=== PATIENT | male | born 1990 | race Caucasian/White ===

== ENCOUNTER 2022-02-03 16:03 | Emergency (ER) | payer OTHER ==
[~2022-02-03] VITALS: Ht 180.3 cm; Wt 100.0 kg
[2022-02-03 16:09] VITALS: TEMP 98.7
[2022-02-03 16:43] LABS: COLLECTION METHOD CLEAN CATCH
[2022-02-03 16:46] LABS: BASO # 0.1 K/mm3 (0.0-0.2); BASO % 1.1 % (0.0-2.0); EOS # 0.1 K/mm3 (0.0-0.7); EOS % 1.1 % (0.0-4.0); GRAN # 4.1 K/mm3 (1.4-6.5); GRAN % 61.1 % (42.2-75.2); LYMPH # 1.9 K/mm3 (1.2-3.4); LYMPH % 28.4 % (20.0-51.0); MEAN CELL VOLUME 97 fl (80.0-100.0); MEAN CORPUSCULAR HEMOGLOBIN 33 pg (27-31); MEAN CORPUSCULAR HGB CONC 34 g/dl (33.0-37.0); MEAN PLATELET VOLUME 10.3 fl (7.4-10.4); MONO # 0.5 K/mm3 (0.1-0.6); MONO % 8.1 % (1.7-9.3); PLATELET COUNT 210 K/mm3 (130-400); RED BLOOD COUNT 4.25 M/mm3 (4.20-5.60); REDCELL DISTRIBUTION WIDTH-CV 12.4 % (11.5-14.5)
[2022-02-03 16:51] LABS: MUCOUS Present (NOT PRESENT); SQUAMOUS EPITHELIAL 0-2 /hpf (0-10); URINE APPEARANCE Clear (CLEAR/HAZY); URINE BACTERIA None Seen /hpf (NONE SEEN); URINE COLOR Yellow (YELLOW); URINE RBC 20-50 /hpf (0-2)
[2022-02-03 16:52] LABS: PH 5.5 (5.0-8.5); URINE BLOOD 2+ (NEGATIVE); URINE GLUCOSE Negative (NEGATIVE); URINE KETONE Negative (NEGATIVE); URINE NITRATE Negative (NEGATIVE); URINE PROTEIN(semi-quant) 1+ (NEGATIVE); URINE UROBILINOGEN 0.2 E.U/dL (0.2-1.0)
[2022-02-03 17:05] LABS: CREATININE, serum 1.02 mg/dL (0.72-1.25); POTASSIUM 3.6 mmol/L (3.5-4.5)
[2022-02-03 17:06] LABS: ALBUMIN 4.5 gm/dL (3.5-5.0); BILIRUBIN,TOTAL 0.3 mg/dL (0.2-1.2); CALCIUM 9.5 mg/dL (8.4-10.2); TOTAL PROTEIN 7.5 gm/dL (6.2-8.1)
[2022-02-03 18:25] VITALS: BP 129/86; PULSE 87
[2022-02-03] MEDS ORDERED: PERCOCET 325 MG1 TA2 PO (18:29)
[2022-02-03] MEDS ORDERED: FLOMAX 0.40.4 MG/CAP PO (18:31)
== END 2022-02-03 18:47 | disposition home or self-care (01) ==
LOC: COL.ER 16:03
PROVIDERS: Physician Assistant
DX: N13.2 Hydronephrosis with renal and ureteral calculous obstruction (principal); Z87.891 Personal history of nicotine dependence; Z28.310 Unvaccinated for COVID-19
CPT/HCPCS: Q9967

== ENCOUNTER → 2022-06-23 | Day surgery (SDC) | payer OTHER ==
[~2022-06-23] VITALS: Ht 177.8 cm; Wt 103.6 kg
[~2022-06-23] MED LIST: FLOMAX 0.40.4 MG/CAP PO; NORCO 325 MG-51 TAB PO; PERCOCET 325 MG1 TA2 PO; PYRIDIUM 100MG100 MG PO
[2022-06-23 08:21] VITALS: BP 122/70; PULSE 72; TEMP 98.1
[2022-06-23 12:16] VITALS: BP 141/91; PULSE 88; TEMP 98.6
--- NOTE | 2022-06-23 12:55 | NUR ---
1150 RETURNS TO ROOM 1 PER CART. AWAKE, ALERT. RESP CLEAR, UNLABORED. HOV ELEVATED 60 DEGREES. VITAL SIGNS OBTAINED. DENIES PAIN OR URINARY URGENCY. CALL LIGHT AT SIDE. IN ROOM. 1200 AMBULATES TO BATHROOM WITH STANDBY ASSIST. VOIDS WITHOUT DIFFICULTY. 1215 TOLERATES PO WATER AND MUFFIN WITHOUT NAUSEA. 1230 AWAKE, ALERT. CONVERSES WITH . 1240 DISCHARGE INSTRUCTIONS REVIEWED. PATIENT AND VERBALIZE UNDERSTANDING. COPY PROVIDED IN DISCHARGE FOLDER. 1245 SITS ON EDGE OF BED. DRESSES SELF. THEN AMBULATES TO BATHROOM. AGAIN, VOIDS WITHOUT DIFFICULTY.
== END ==
LOC: SDCO 07:38
DX: N20.0 Calculus of kidney (principal); N28.89 Other specified disorders of kidney and ureter; Z87.891 Personal history of nicotine dependence
CPT/HCPCS: C1769; C2617; J0690; J1885; J2405; J2704; J3010; J7120; Q9967

== ENCOUNTER 2023-06-27 08:50 | Day surgery (SDC) | payer OTHER ==
[~2023-06-27 08:50] MED LIST changes: +LR 1,000 ML IV SCH
[2023-06-27] MEDS ORDERED: fentaNYL 50 MCG/ML 2 ML VIAL ONE (09:24)
[2023-06-27] MEDS ORDERED: Lidocaine PF 2% (20 MG/ML) 5 ML VIAL ONE (09:25)
[2023-06-27] MEDS ORDERED: NS 10 ML IV ONE (09:25)
[2023-06-27] MEDS ORDERED: dexAMETHasone 10 MG/ML VIAL ONE (09:25)
[2023-06-27] MEDS ORDERED: Glycopyrrolate 0.2 MG/ML 1 ML VIAL ONE (09:25)
[2023-06-27] MEDS ORDERED: Ondansetron 4 MG/2 ML VIAL ONE (09:25)
[2023-06-27] MEDS ORDERED: Lidocaine 2% (20 MG/ML) 20 ML UROJET UR ONE (09:50)
--- NOTE | 2023-06-27 09:59 | NUR ---
0805 Received report from RYAN Carl[place], [facility]. Pt enroute via POV. Arrived 06/26/23 at 1725 c/o RLQ and right side flank pain. CT showing 8mm x 5mm obstructing stone. Received 1 L NS and 1 L LR. lisinopril 20 mg PO @ 0049 Toradol 15 mg IV @ 1742 06/26/23 and 0048 06/27 Fentanyl x 2 Morphine 4 mg IV @ 0300 and 0715 20 waqar IV placed in right AC D/C VS 158/101, 78HR, 18RR, 97%
[2023-06-27] MEDS ORDERED: HYDROmorphone 2 MG/1 ML VIAL IV PRN (10:15)
[2023-06-27] MEDS ORDERED: hydrALAZINE 20 MG/ML 1 ML VIAL IV PRN (10:15)
[2023-06-27] MEDS ORDERED: droPERidol 2.5 MG/ML 2 ML VIAL IV PRN (10:15)
[2023-06-27] MEDS ORDERED: Promethazine 25 MG/ML 1 ML VIAL IV PRN (10:15)
[2023-06-27] MEDS ORDERED: Ondansetron 4 MG/2 ML VIAL IV PRN (10:15)
[2023-06-27] MEDS ORDERED: fentaNYL 50 MCG/ML 2 ML VIAL IV PRN (10:15)
[2023-06-27] MEDS ORDERED: ePHEDrine 50 MG/ML VIAL ONE (10:28)
[2023-06-27] MEDS ORDERED: PERCOCET 325 MG1 TA2 PO (11:00)
[2023-06-27] MEDS ORDERED: FLOMAX 0.40.4 MG/CAP PO (11:00)
[2023-06-27] MEDS ORDERED: oxyCODONE/Acetaminophen 5-325 MG TAB PO PRN (11:15)
[2023-06-27] MEDS ORDERED: Hyoscyamine 0.125 MG Sublingual TAB SL PRN (11:15)
[2023-06-27] MEDS ORDERED: Ketorolac 15 MG/ML VIAL IV PRN (11:15)
[2023-06-27 11:35] VITALS: BP 121/97; PULSE 85; TEMP 97.8
[2023-06-27 11:45] VITALS: BP 111/65; PULSE 83
[2023-06-27 12:00] VITALS: BP 117/63; PULSE 74
--- NOTE | 2023-06-27 12:38 | NUR ---
1215 - PATIENT IS TOLERATING PO WELL, AMBULATES INDEPENDENTLY TO BATHROOM WITH STEADY GAIT, IS ABLE TO URINATE AND CONTINUES TO BE CLEAR BLOOD TINGED URINE. DISCHARGE INSTRUCTIONS GONE OVER WITH FAMILY AND PATIENT IN THE ROOM. THEY VERBALIZED UNDERSTANDING OF DISCHARGE INSTRUCTIONS AND HOME MEDICATIONS. GIVEN INSRUCTION TO CALL WITH ANY QUESTIONS OR CONCERN. PATIENT IV TAKEN OUT OF [facility]AC WITH CATHETER INTACT. PATIENT IS GETTING DRESSED AT THIS TIME. 1230 - PATIENT IS DISCHARGED TO HOME BOUND VEHICLE ACCOMPANIED BY STAFF BY WHEELCHAIR. IS DRIVING THE PATIENT. PERSONAL BELONGINGS AND DISCHARGE PAPERWORK WITH PATIENT AT THIS TIME.
--- NOTE | 2023-06-27 14:13 | NUR ---
0908 PT AMBULATORY TO BAY 5 WITH A STEADY GAIT, BREATHING EVEN AND UNLABORED. PT IS ALERT AND ORIENTED. CONSENTS REVIEWED AND SIGNED BY PT. IV ESTABLISHED. LR INFUSING VIA GRAVITY AT KVO. CALL LIGHT IN REACH. WARM BLANKET PROVIDED.
== END 2023-06-27 12:30 | disposition home or self-care (01) ==
LOC: SDCO 08:50
DX: N20.2 Calculus of kidney with calculus of ureter (principal)
CPT/HCPCS: C1769; C2617; J0690; J1100; J2405; J2704; J3010

== ENCOUNTER → 2023-08-09 | Outpatient (CLI) | payer OTHER ==
[~2023-08-09] MED LIST changes: -LR 1,000 ML IV SCH
== END ==
LOC: COL.RAD 15:12
DX: N20.2 Calculus of kidney with calculus of ureter (principal)

== ENCOUNTER 2023-09-10 09:06 | Emergency (ER) | payer OTHER ==
[~2023-09-10] VITALS: Ht 177.8 cm; Wt 109.1 kg
[2023-09-10 09:14] VITALS: BP 167/98; TEMP 97.7
[2023-09-10 09:46] LABS: COLLECTION METHOD CLEAN CATCH
[2023-09-10 09:54] LABS: PH 5.5 (5.0-8.5); URINE APPEARANCE CLEAR (CLEAR/HAZY); URINE BLOOD 2+ (NEGATIVE); URINE COLOR YELLOW (YELLOW); URINE GLUCOSE NEGATIVE (NEGATIVE); URINE KETONE NEGATIVE (NEGATIVE); URINE NITRATE NEGATIVE (NEGATIVE); URINE PROTEIN(semi-quant) TRACE (NEGATIVE); URINE UROBILINOGEN 0.2 E.U/dL (0.2-1.0)
[2023-09-10] MEDS ORDERED: Iohexol 300 - 100 ML VIAL IV ONE (10:04)
[2023-09-10 10:05] LABS: MUCOUS PRESENT (NOT PRESENT); URINE BACTERIA RARE /hpf (NONE SEEN)
[2023-09-10] MEDS ORDERED: NS 100 ML IV SCH (10:11)
[2023-09-10 11:33] VITALS: PULSE 70
== END 2023-09-10 11:33 | disposition home or self-care (01) ==
LOC: COL.ER 09:06
PROVIDERS: Family Medicine
DX: N13.2 Hydronephrosis with renal and ureteral calculous obstruction (principal)
CPT/HCPCS: Q9967

== ENCOUNTER 2024-01-17 12:04 | Emergency (ER) | payer OTHER ==
[~2024-01-17] VITALS: Ht 177.8 cm; Wt 100.0 kg
[~2024-01-17 12:04] MED LIST changes: +MOBIC15 MG PO; +ROXICODONE 55 MG/TAB PO; +ZOFRAN ODT4 MG PO
[2024-01-17 12:12] VITALS: TEMP 97.8
[2024-01-17] MEDS ORDERED: LR 1,000 ML IV ONE (12:30)
[2024-01-17] MEDS ORDERED: Ondansetron 4 MG/2 ML VIAL IV ONE (12:30)
[2024-01-17] MEDS ORDERED: Ketorolac 15 MG/ML VIAL IV ONE (12:45)
[2024-01-17] MEDS ORDERED: Morphine 4 MG/ML VIAL IV ONE (12:45)
[2024-01-17 12:51] LABS: COLLECTION METHOD CLEAN CATCH
[2024-01-17 12:58] LABS: BASO # 0.1 K/mm3 (0.0-0.2); BASO % 0.4 % (0.0-2.0); EOS % 0.1 % (0.0-4.0); GRAN # 10.1 K/mm3 (1.4-6.5); GRAN % 80.3 % (42.2-75.2); HEMATOCRIT 40.1 % (42.0-52.0); HEMOGLOBIN 13.8 g/dl (13.5-18.0); LYMPH # 1.5 K/mm3 (1.2-3.4); LYMPH % 11.7 % (20.0-51.0); MEAN CELL VOLUME 94 fl (80.0-100.0); MEAN CORPUSCULAR HEMOGLOBIN 33 pg (27-31); MEAN CORPUSCULAR HGB CONC 34 g/dl (33.0-37.0); MEAN PLATELET VOLUME 10.1 fl (7.4-10.4); MONO # 0.9 K/mm3 (0.1-0.6); MONO % 7.1 % (1.7-9.3); PLATELET COUNT 209 K/mm3 (130-400); RED BLOOD COUNT 4.25 M/mm3 (4.20-5.60); REDCELL DISTRIBUTION WIDTH-CV 11.8 % (11.5-14.5)
[2024-01-17 13:00] LABS: URINE APPEARANCE CLEAR (CLEAR/HAZY); URINE BLOOD NEGATIVE (NEGATIVE); URINE COLOR YELLOW (YELLOW); URINE GLUCOSE NEGATIVE (NEGATIVE); URINE KETONE NEGATIVE (NEGATIVE); URINE NITRATE NEGATIVE (NEGATIVE); URINE PROTEIN(semi-quant) NEGATIVE (NEGATIVE); URINE UROBILINOGEN 0.2 E.U/dL (0.2-1.0)
[2024-01-17 13:15] LABS: ALBUMIN 4.3 g/dL (3.5-5.0); BILIRUBIN,TOTAL 0.6 mg/dL (0.2-1.2); C-REACTIVE PROTEIN 0.81 mg/dL (0.00-0.50); CREATININE, serum 1.09 mg/dL (0.72-1.25); POTASSIUM 3.5 mEq/L (3.5-4.5); TOTAL PROTEIN 7.1 g/dl (6.2-8.1)
[2024-01-17] MEDS ORDERED: Iohexol 300 - 100 ML VIAL IV ONE (13:32)
[2024-01-17] MEDS ORDERED: NS 100 ML IV SCH (13:33)
[2024-01-17] MEDS ORDERED: PERCOCET 325 MG1 TA2 PO (14:23)
[2024-01-17 14:38] VITALS: BP 146/94; PULSE 80
== END 2024-01-17 14:38 | disposition home or self-care (01) ==
LOC: COL.ER 12:04
PROVIDERS: Family Medicine
DX: N20.1 Calculus of ureter (principal); Z87.442 Personal history of urinary calculi
CPT/HCPCS: J1885; J2270; J2405; J7120; Q9967

== ENCOUNTER 2024-03-16 07:09 | Observation (INO) | payer OTHER ==
[2024-03-16] VITALS (7 sets, daily range): BP systolic 131–150; BP diastolic 74–92; PULSE 69–97; TEMP 97.9–98.5
[~2024-03-16] VITALS: Ht 177.8 cm; Wt 102.7 kg
[2024-03-16] MEDS ORDERED: Ondansetron 4 MG/2 ML VIAL IV ONE (07:30)
[2024-03-16] MEDS ORDERED: NS 1,000 ML IV ONE (07:30)
[2024-03-16] MEDS ORDERED: Ketorolac 30 MG/ML VIAL IV ONE (07:30)
[2024-03-16 07:52] LABS: BASO # 0.1 K/mm3 (0.0-0.2); BASO % 0.9 % (0.0-2.0); EOS # 0.1 K/mm3 (0.0-0.7); EOS % 1.3 % (0.0-4.0); GRAN # 4.6 K/mm3 (1.4-6.5); GRAN % 66.6 % (42.2-75.2); HEMATOCRIT 43.3 % (42.0-52.0); HEMOGLOBIN 14.7 g/dl (13.5-18.0); LYMPH # 1.5 K/mm3 (1.2-3.4); LYMPH % 22.4 % (20.0-51.0); MEAN CELL VOLUME 96 fl (80.0-100.0); MEAN CORPUSCULAR HEMOGLOBIN 33 pg (27-31); MEAN CORPUSCULAR HGB CONC 34 g/dl (33.0-37.0); MONO # 0.6 K/mm3 (0.1-0.6); MONO % 8.4 % (1.7-9.3); PLATELET COUNT 220 K/mm3 (130-400); RED BLOOD COUNT 4.52 M/mm3 (4.20-5.60); REDCELL DISTRIBUTION WIDTH-CV 12.3 % (11.5-14.5)
[2024-03-16 08:05] LABS: ALBUMIN 4.3 g/dL (3.5-5.0); BILIRUBIN,TOTAL 0.6 mg/dL (0.2-1.2); CALCIUM 9.4 mg/dL (8.4-10.2); CREATININE, serum 0.97 mg/dL (0.72-1.25); TOTAL PROTEIN 7.1 g/dl (6.2-8.1)
[2024-03-16 08:26] LABS: COLLECTION METHOD CLEAN CATCH
[2024-03-16 08:34] LABS: PH 5.5 (5.0-8.5); URINE APPEARANCE CLEAR (CLEAR/HAZY); URINE BLOOD 3+ (NEGATIVE); URINE COLOR YELLOW (YELLOW); URINE GLUCOSE NEGATIVE (NEGATIVE); URINE KETONE NEGATIVE (NEGATIVE); URINE NITRATE NEGATIVE (NEGATIVE); URINE PROTEIN(semi-quant) NEGATIVE (NEGATIVE); URINE UROBILINOGEN 0.2 E.U/dL (0.2-1.0)
[2024-03-16] MEDS ORDERED: NS 100 ML IV SCH (08:41)
[2024-03-16] MEDS ORDERED: Iohexol 300 - 100 ML VIAL IV ONE (08:41)
[2024-03-16] MEDS ORDERED: fentaNYL 50 MCG/ML 2 ML VIAL IV ONE (10:15)
[2024-03-16] MEDS ORDERED: HCTZ 25MG TAB25 MG PO (10:30)
[2024-03-16] MEDS ORDERED: fentaNYL 50 MCG/ML 2 ML VIAL IV PRN (11:30)
[2024-03-16] MEDS ORDERED: Ondansetron 4 MG/2 ML VIAL IV PRN ×2 (11:30→16:30)
[2024-03-16] MEDS ORDERED: NS 1,000 ML IV SCH (11:30)
[2024-03-16] MEDS ORDERED: LR 1,000 ML IV SCH (12:00)
--- NOTE | 2024-03-16 12:00 | NUR ---
Patient admitted to room 328. Ivf and medication for pain as ordered. Assessment completed.
[2024-03-16] MEDS ORDERED: Ketorolac 15 MG/ML VIAL IV SCH (16:00)
[2024-03-16] MEDS ORDERED: dexAMETHasone 10 MG/ML VIAL ONE (16:20)
[2024-03-16] MEDS ORDERED: fentaNYL 50 MCG/ML 2 ML VIAL ONE ×2 (16:20→17:06)
[2024-03-16] MEDS ORDERED: Ondansetron 4 MG/2 ML VIAL ONE (16:20)
[2024-03-16] MEDS ORDERED: Lidocaine PF 2% (20 MG/ML) 5 ML VIAL ONE (16:20)
[2024-03-16] MEDS ORDERED: NS 10 ML IV ONE (16:20)
[2024-03-16] MEDS ORDERED: Glycopyrrolate 0.2 MG/ML 1 ML VIAL ONE (16:20)
[2024-03-16] MEDS ORDERED: HYDROmorphone 1 MG/1 ML SYRINGE [PACU/SDC ONLY] IV PRN (16:30)
[2024-03-16] MEDS ORDERED: Ketorolac 15 MG/ML VIAL IV PRN (16:30)
[2024-03-16] MEDS ORDERED: hydrALAZINE 20 MG/ML 1 ML VIAL IV PRN (16:30)
[2024-03-16] MEDS ORDERED: fentaNYL 50 MCG/ML 1 ML SYRINGE/VIAL [PACU/SDC ONLY] IV PRN (16:30)
--- NOTE | 2024-03-16 16:30 | NUR ---
Patient to the OR with [facility] OR nurse. LR to gravity. Pre op check list competed, as well as ticket to ride. Patient has remains NPO. Voiding with urine strained. Pain medications as ordered for right flank pain. Will await return
[2024-03-16] MEDS ORDERED: Lidocaine 2% (20 MG/ML) 20 ML UROJET UR ONE ×2 (16:47→17:18)
[2024-03-16] MEDS ORDERED: Iohexol 300 - 10 ML VIAL URETER-R ONE (16:47)
[2024-03-16] MEDS ORDERED: ePHEDrine 50 MG/ML VIAL ONE (17:00)
[2024-03-16] MEDS ORDERED: ROXICODONE 55 MG/TAB PO (17:22)
[2024-03-16] MEDS ORDERED: oxyCODONE/Acetaminophen 5-325 MG TAB PO PRN (17:30)
[2024-03-16] MEDS ORDERED: Hyoscyamine 0.125 MG Sublingual TAB SL PRN (17:30)
--- NOTE | 2024-03-16 18:37 | NUR ---
Patient returned post op his family at bedside. He is ready to get home. Voided x3. Vss. He tolerated ice water, going to get dinner on his way home. Verbalized understanding of discharge orders. Ambulated out with taking him home.
== END 2024-03-16 18:40 | disposition home or self-care (01) ==
LOC: COL.ER 07:09 → SURG 10:46
PROVIDERS: Emergency Medicine; ADMIT Urology
DX: N20.2 Calculus of kidney with calculus of ureter (principal)
CPT/HCPCS: C1769; C2617; G0378; J0690; J1100; J1885; J2405; J2704; J3010; J7030; Q9967